=== PATIENT | female | born 1990 | race Caucasian/White ===

== ENCOUNTER 2023-03-11 09:49 | Outpatient (CLI) | payer BC, SELFPAY ==
--- NOTE | ~2023-03-11 | US_ITS ---
EXAMINATION: 1. US OB limited w BPP 2. US OB follow up DATE: 03/11/2023 12:29 INDICATION: Hypertension. Third trimester. TECHNIQUE: Real-time ultrasound of the pelvis was performed. COMPARISON: None. FINDINGS: There is a single living fetus in vertex presentation. The placenta is anterior. heart rate is 129 beats per minute (bpm). The amniotic fluid index is 13.6 cm, which is normal. The following biometric data were obtained: Biparietal diameter (BPD): 9.2 cm; head circumference (HC): 32.7 cm; abdominal circumference (AC): 33 .2 cm; femur length (FL): 7.3 cm. These measurements are concordant. Estimated weight is 3156 g +/- 473 g, which correlates with the 69th percentile when 04/03/23 is used as estimated date of delivery. As single measurements, these parameters are each equal to the following estimated gestational ages: BPD: 37 weeks 3 days. HC: 37 weeks 0 days. AC: 37 weeks 1 days. FL: 37 weeks 3 days. estimated gestational age based solely on measurements from this exam is 37 weeks 2 days +/- 2 weeks 4 days. Biophysical profile performed by the technologist: breathing (30 sec sustained breathing in 30 minutes): 0 out of 2 movement (3 gross body movements in 30 minutes): 2 out of 2 tone (one episode of ntvejdq-vrdbalrgr-mjiqmen limb movement): 2 out of 2 Amniotic fluid pocket (2 cm): 2 out of 2 Total score: 6 out of 8 IMPRESSION: 1. Single living fetus in vertex presentation. 2. Estimated weight is 3156 g +/- 473 g, which correlates with the 69th percentile when 04/03/23 is used as estimated date of delivery. 3. Biophysical profile 6 out of 8. Reviewed, dictated and finalized at location A. IMPRESSION: 1. Single living fetus in vertex presentation. 2. Estimated weight is 3156 g +/- 473 g, which correlates with the 69th percentile when 5/6/23 is used as estimated date of delivery. 3. Biophysical profile 6 out of 8.
[2023-03-11 10:21] VITALS: BP 152/93; PULSE 99
[2023-03-11 10:30] VITALS: BP 135/97; PULSE 92
[2023-03-11 10:41] LABS: Basophils Percent Auto 0.2 % (0.2-1.2); Eosinophils Absolute Auto 0.1 K/mm3 (0-0.3); Eosinophils Percent Auto 0.5 % (0-4.4); Hematocrit 39.1 % (37.0-47.0); Hemoglobin 13.4 g/dL (12.0-15.0); Immature Granulocyte Absolute 0.05 K/mm3 (0.00-0.031); Immature Granulocyte Percent A 0.5 % (0-0.5); Lymphocytes Absolute Auto 2.11 K/mm3 (0.9-3.2); Lymphocytes Percent Auto 21.6 % (18.3-44.2); Mean Corpuscular HGB Conc 34.3 g/dl (32-36); Mean Corpuscular Hemoglobin 29.3 pg (26-34); Mean Corpuscular Volume 85.4 fl (80-100); Mean Platelet Volume 11.2 fl (7.4-10.4); Monocytes Absolute Auto 0.6 K/mm3 (0.1-0.6); Monocytes Percent Auto 5.7 % (2.6-8.5); Neutrophils Percent Auto 71.5 % (45.5-73.1); Platelet Count Result 226 k/mm3 (150-375); Red Blood Count 4.58 M/mm3 (4.2-5.4); Red Cell Distribution Width 13.1 % (11.5-14.5); White Blood Count 9.8 K/mm3 (4.5-10.0)
[2023-03-11 10:45] VITALS: BP 147/97; PULSE 82
[2023-03-11 10:54] LABS: Alanine Aminotransferase 25 U/L (6-35); Albumin Level 3.9 g/dL (3.5-5.1); Alkaline Phosphatase 128 U/L (38-126); Anion Gap 5 mmol/L (8-16); Aspartate Amino Transferase 33 U/L (14-36); Bilirubin,Total 0.6 mg/dL (0.2-1.3); Blood Urea Nitrogen 9 mg/dL (7-17); Calcium 8.9 mg/dL (8.4-10.2); Carbon Dioxide 23 mmol/L (22-30); Chloride 105 mmol/L (98-107); Estimated Glomerular Filt Rate > 60; Glucose 86 mg/dL (65-110); Potassium 3.9 mmol/L (3.4-5.0); Sodium 133 mmol/L (137-145)
[2023-03-11 11:00] VITALS: BP 147/102; PULSE 87
[2023-03-11 11:13] LABS: Creatinine Urine 285.1 mg/dL; Total Protein Urine Random 16 mg/dL; Ur Ttl Prot Creatinine Ratio 0.06 mg/mg (0-0.20)
[2023-03-11 11:15] VITALS: BP 143/98; PULSE 94
[2023-03-11 11:19] VITALS: BP 135/97; PULSE 93
[2023-03-11 11:25] LABS: Appearance Urine Cloudy (Clear); Bacteria Urine 1+ /hpf; Bilirubin Urine 1+ (Negative); Blood Urine Negative (Negative); Color Urine Dark Yellow (Yellow); Glucose Urine UA Negative (Negative); Ketones Urine Trace mg/dL (Negative); Leukocyte Esterase Ur 1+ LEU/UL (NEGATIVE); Need Manual Microscopic Reviewed; Nitrate Urine Negative (Negative); Protein Urine 2+ mg/dL (Negative); RBC Urine 0-2 /hpf (0-2); Specific Grav Ur 1.028 (1.001-1.035); Squamous Epithelial Cell Urine Few /hpf (Few); pH Urine 6.5 (5.0-9.0)
[2023-03-11 11:27] LABS: Add Urine Microscopic? YES
--- NOTE | 2023-03-11 11:34 | PC.NURSE ---
Dr. Haynes updated with vital signs, labs and tracing reviewed. Order received for pt to have ultrasound with VON, BPP and est weight.
--- NOTE | 2023-03-11 12:51 | PC.NURSE ---
Dr. Haynes updated with pt ultrasound report. Order received for pt to discharge with a 24 hour urine and call the office for appt on Wednesday.
[2023-03-11 13:16] VITALS: BMI 35.9
== END 2023-03-11 13:09 | disposition home or self-care (01) ==
LOC: ANHOBOP 09:53 → ANHOBPP 09:53
PROVIDERS: PCP Family Medicine; Visit Provider Obstetrics & Gynecology
DX: O99.891 Other specified diseases and conditions complicating pregnancy (principal); R03.0 Elevated blood-pressure reading, without diagnosis of hypertension; Z3A.37 37 weeks gestation of pregnancy
CPT/HCPCS: 36415; 59025; 76815; 76816; 76819; 80053; 81001; 82570; 84156; 84550; 85025; 87086; 87088; 99199

== ENCOUNTER 2023-03-12 13:23 | Outpatient (NON) | payer BC, SELFPAY ==
[2023-03-12 13:23] VITALS: BMI 36.0
[2023-03-12 15:51] LABS: Collection Time Urine 24 HOURS
[2023-03-12 16:02] LABS: Patient Weight 230 Lbs; Total Volume 24 Hour Urine 1400 ml
[2023-03-12 16:03] LABS: Total Volume 24 Hour Urine 1400 ml
[2023-03-12 16:07] LABS: Total Protein Urine 24 Hr 154 mg/24hr (28-141); Total Protein Urine Random 11 mg/dL
[2023-03-12 16:08] LABS: Creatinine Clearance Urine 205.4 ml/min (75-125); Creatinine Urine 130.6 mg/dL
== END 2023-03-12 13:24 | disposition home or self-care (01) ==
LOC: ANHOBOP 13:49
PROVIDERS: PCP Family Medicine; Visit Provider Obstetrics & Gynecology
DX: O99.891 Other specified diseases and conditions complicating pregnancy (principal); R03.0 Elevated blood-pressure reading, without diagnosis of hypertension
CPT/HCPCS: 81050; 82575; 84156

== ENCOUNTER 2023-03-16 05:01 | Inpatient (IN) | payer BC, SELFPAY ==
[2023-03-16] VITALS (126 sets, daily range): BP systolic 93–164; BP diastolic 45–117; PULSE 73–133; RESP 16; TEMP 36.4–37.1; O2SAT 98–100; BMI 36.6
--- NOTE | 2023-03-16 05:24 | LDADM ---
This patient, Stephanie Nogueira, was admitted to Labor/Delivery/Recovery 107 on 03/16/23 at 05:01. Plans for labor, pain management and were discussed with patient. Patient/family oriented to hospital policies and general routines including ID bracelet, bed and alarms, visiting hours, pain management, procedures, bathroom and other care routines, personal items, smoking policy, room service/diet and guest tray routines, security routines, and visiting hours. Patient/Family are encouraged to report perceived risks to care and to ask questions if they do not understand what they are told or what they should do. See OBIX for further documentation.
[2023-03-16 06:01] LABS: Basophils Percent Auto 0.3 % (0.2-1.2); Eosinophils Absolute Auto 0.1 K/mm3 (0-0.3); Eosinophils Percent Auto 0.6 % (0-4.4); Hematocrit 37.2 % (37.0-47.0); Immature Granulocyte Absolute 0.06 K/mm3 (0.00-0.031); Immature Granulocyte Percent A 0.5 % (0-0.5); Lymphocytes Absolute Auto 2.72 K/mm3 (0.9-3.2); Lymphocytes Percent Auto 21.8 % (18.3-44.2); Mean Corpuscular HGB Conc 34.9 g/dl (32-36); Mean Corpuscular Hemoglobin 28.8 pg (26-34); Mean Corpuscular Volume 82.5 fl (80-100); Mean Platelet Volume 11.3 fl (7.4-10.4); Monocytes Absolute Auto 0.7 K/mm3 (0.1-0.6); Monocytes Percent Auto 5.4 % (2.6-8.5); Neutrophils Absolute Auto 8.9 K/mm3 (1.3-6.7); Neutrophils Percent Auto 71.4 % (45.5-73.1); Platelet Count Result 224 k/mm3 (150-375); Red Blood Count 4.51 M/mm3 (4.2-5.4); Red Cell Distribution Width 12.9 % (11.5-14.5); White Blood Count 12.5 K/mm3 (4.5-10.0)
[2023-03-16 06:30] LABS: Alanine Aminotransferase 29 U/L (6-35); Albumin Level 3.9 g/dL (3.5-5.1); Alkaline Phosphatase 140 U/L (38-126); Anion Gap 8 mmol/L (8-16); Aspartate Amino Transferase 36 U/L (14-36); Bilirubin,Total 0.5 mg/dL (0.2-1.3); Blood Urea Nitrogen 8 mg/dL (7-17); Carbon Dioxide 19 mmol/L (22-30); Chloride 108 mmol/L (98-107); Estimated CRCL calculation 170 ml/min; Estimated Glomerular Filt Rate > 60; Glucose 100 mg/dL (65-110); Potassium 3.6 mmol/L (3.4-5.0); Sodium 135 mmol/L (137-145); Uric Acid 5.8 mg/dL (2.5-7.5)
[2023-03-16 06:47] LABS: Rapid Plasma Reagin Non-Reactive (NonReactive)
[2023-03-16 06:48] LABS: HIV 1/2 Ab P24 Ag Result Negative (Negative)
[2023-03-16] MEDS: AMPICILLIN 2 GM/NS 100 ML 2 GM/100 ML BAG IVPB (06:57)
[2023-03-16] MEDS: OXYTOCIN 30 UNITS/NS 500 ML 30 UNITS/500 ML BAG IV CONT (06:57)
[2023-03-16] MEDS: LACTATED RINGERS 1,000 ML 125 ML IV CONT (06:57)
--- NOTE | 2023-03-16 08:41 | WPDOBADMIT ---
Obstetrics - Admit Note Admission Note: record reviewed. Additions to the history and/or subsequent changes in the physical findings follow. 32 y/o at 37 3/7 with gestational hypertension here for induction of labor. GBS unknown, results not back yet. Had taken 81 mg aspirin through . otherwise unremarkable. AVSS bp currently 120/70 NST reactive TOCO: irregular contractions ABD soft, nontender, gravid, vertex EXT nontender Cervix 3/50/-2. AROM with clear fluid. Vertex. IUPC placed. A: IUP at term with gestational HTN. P: Offered induction of labor. Oxytocin. Reviewed risks of prematurity vs. risks of hypertensive disease. Pediatrics prefers GBS prophylaxis in this situation, so ampicillin has been started. Anticipate .
[2023-03-16] MEDS: AMPICILLIN 1 GM/NS 50 ML 1 GM/50 ML BAG IVPB (11:49)
[2023-03-16] MEDS: CALCIUM CARBONATE (TUMS) 500 MG (200 MG ELEMENTAL) PO (11:49)
[2023-03-16] MEDS: ACETAMINOPHEN 500 MG TABLET 1000 MG PO (12:06)
--- NOTE | 2023-03-16 13:52 | P.PCNOB_ITS ---
OB - Delivery Note Procedure Delivery date: 03/16/23 Procedure: Induction of labor with Events: Gestational Hypertension Induction method: Per Pitocin Protocol Delivery augmentation: Rupture of Membranes Delivery monitor: External FHT, External Uterine and Internal Uterine Route of delivery: Laceration Description: Periurethral Delivery repair: vicryl (3-0) Specimen: Yes (Cord blood, placenta) Quantitative Blood Loss (ml): 180 Anesthesia type: Epidural Disposition: PACU Complications: None Narrative: 32 y/o at 37 3/7 weeks gestation who presented to the hospital for induction of labor for gestational hypertension and worsening bp control. Oxytocin was administered intravenously. Amniotomy was performed with return of clear fluid. She received an epidural for pain control. Her labor progressed and her cervix dilated completely. She pushed with good effort and delivered the infant's head to the perineum, followed by the body. The nose and mouth were bulb suctioned. After a delay, the cord was clamped and cut. The was handed off the field. Cord blood was collected. The placenta delivered spontaneously and was grossly normal in appearance. The usual 3 vessel cord was noted. A left-sided periurethral laceration was sustained. This was reapproximated using 3 0 Vicryl in interrupted figure of eight fashion. Excellent hemostasis resulted as did excellent reapproximation of the normal anatomy. Needle and instrument counts were correct. The patient was taken to r ecovery room in stable condition. The infant went to the nursery in stable condition. I was present and scrubbed for the entire delivery. [place] Baby Date of : 03/16/23 Time of : 13:33 Weeks of gestation at delivery: 37 Infant gender: Male Weight (pounds): 6 Weight (ounces): 8 score one minute: 9 score five minutes: 9
--- NOTE | 2023-03-16 13:54 | PM.OBDSVD ---
DS: Admitting Diagnosis Discharge Date 03/18/23 Admitting Diagnosis IUP at 37 3/7 weeks Gestational HTN DS: Discharge Diagnosis Discharge Diagnosis (1) Gestational hypertension affecting second : Code(s): O13.9 - Gestational [-induced] hypertension without significant proteinuria, unspecified trimester Status: Acute (2) (normal spontaneous vaginal delivery): Code(s): O80 - Encounter for full-term uncomplicated delivery Status: Acute OB - DS: Summary OB Procedures : PIH Mgmt OB Procedures Intrapartum: Spontaneous Vag Delivery OB Procedures: : None Time Spent with Patient Time attestation: Total time spent providing and/or coordinating discharge services: DS: Data Data Completed and Pending Labs on day of discharge: Labs from last 24 hours 03/16/23 03/16/23 03/16/23 05:16 05:16 05:16 WBC RBC Hgb Hct MCV MCH MCHC RDW Plt Count MPV Immature Gran % (Auto) Neut % (Auto) Lymph % (Auto) Bond % (Auto) Eos % (Auto) Baso % (Auto) Lymph # (Auto) Bond # (Auto) Eos # (Auto) Baso # (Auto) Abs Immat Gran (auto) Absolute Neuts (auto) Absolute Nucleated RBC Nucleated RBC % Sodium Potassium Chloride Carbon Dioxide Anion Gap BUN Creatinine Estim Creat Clear Calc Estimated GFR Glucose Uric Acid Calcium Total Bilirubin AST ALT Alkaline Phosphatase Total Protein Albumin RPR Non-reactive HIV 1&2 Ab/P24 Ag 4thGn Negative Blood Type A Positive Antibody Screen Negative 03/16/23 03/16/23 05:16 05:15 WBC 12.5 H RBC 4.51 Hgb 13.0 Hct 37.2 MCV 82.5 MCH 28.8 MCHC 34.9 RDW 12.9 Plt Count 224 MPV 11.3 H Immature Gran % (Auto) 0.5 Neut % (Auto) 71.4 Lymph % (Auto) 21.8 Bond % (Auto) 5.4 Eos % (Auto) 0.6 Baso % (Auto) 0.3 Lymph # (Auto) 2.72 Bond # (Auto) 0.7 H Eos # (Auto) 0.1 Baso # (Auto) 0.0 Abs Immat Gran (auto) 0.06 H Absolute Neuts (auto) 8.9 H Absolute Nucleated RBC 0.0 Nucleated RBC % 0.0 Sodium 135 L Potassium 3.6 Chloride 108 H Carbon Dioxide 19 L Anion Gap 8 BUN 8 Creatinine 0.50 L Estim Creat Clear Calc 170 Estimated GFR > 60 Glucose 100 Uric Acid 5.8 Calcium 9.0 Total Bilirubin 0.5 AST 36 ALT 29 Alkaline Phosphatase 140 H Total Protein 7.0 Albumin 3.9 RPR HIV 1&2 Ab/P24 Ag 4thGn Blood Type Antibody Screen Discharge Plan Discharge Attending physician on discharge: Harpreet Haynes Discharging Clinician: Harpreet Haynes Patient Disposition: Home, Self-Care Activity: pelvic rest Diet: regular Discharge Instructions: Call or return if temperature above 100.4? F, increased abdominal pain, increased vaginal bleeding or any new problems. Stand Alone Forms: General Discharge Information Follow-up/Referrals: Harpreet Haynes MD [Physician] - 6 Weeks Discharge Medications: New ibuprofen 600 mg tablet 600 mg PO Q6H PRN (Reason: cramps) Qty: 30 0RF nifedipine [Procardia XL] 30 mg tablet extended release 24hr 30 mg PO DAILY Qty: 30 0RF Continued #2 Tablet 1 tablet PO DAILY Date of admission: 03/16/23 05:01 Primary Care Provider: Allyssa,Niels Eaton Admitting Provider: Harpreet Haynes Attending physician on admission: Harpreet Haynes Condition: Stable
[2023-03-16] MEDS: OXYTOCIN 30 UNITS/NS 500 ML 30 UNITS/500 ML BAG 125 UNITS IV CONT (14:03)
[2023-03-16] MEDS: IBUPROFEN 600 MG TABLET PO (16:19)
--- NOTE | 2023-03-16 16:38 | PC.NURSE ---
Patient transferred to post room #280 via wheelchair. Support person present. Oriented to unit, room, information board, rooming in, admission packet and security measures. Patient verbalizes understanding.
[2023-03-16] MEDS: NIFEdipine 30 MG TAB.ER.24 PO (19:30)
[2023-03-16] MEDS: ACETAMINOPHEN 325 MG TABLET 650 MG PO (19:33)
[2023-03-17] VITALS (7 sets, daily range): BP systolic 105–143; BP diastolic 71–92; PULSE 64–90; RESP 16–18; TEMP 36.3–37.1; O2SAT 97–99
[2023-03-17] MEDS: IBUPROFEN 600 MG TABLET PO (05:28)
[2023-03-17 05:34] LABS: Hematocrit 32.8 % (37.0-47.0); Hemoglobin 11.2 g/dL (12.0-15.0)
--- NOTE | 2023-03-17 08:36 | PC.NURSE ---
On 03/17/23, the student, Abena Chow, provided care and completed [employer] documentation on this patient. I have reviewed the student's documentation and agree with the findings.
[2023-03-17] MEDS: DOCUSATE SODIUM 100 MG CAPSULE PO (08:39)
[2023-03-17] MEDS: MULTIVIT/MIN/PREN/FOL AC/IRON TABLET 1 TAB PO (08:39)
--- NOTE | 2023-03-17 09:59 | WPDANLDPN2 ---
Anes-Prog Note L&D Date/Time: 03/17/23 09:59 Comfortable throughout: labor and delivery Neuraxial method: epidural Epidural/Spinal procedure site: clean & non-tender Neuro status: Neuro function grossly intact. Cardiovascular status: normal Respiratory status: normal Airway patency: baseline Mental status: baseline Post-Op hydration status: normal Vital Signs: Last Vital Signs Temp 36.3 C L 03/17/23 07:54 Pulse 86 03/17/23 07:54 Resp 18 03/17/23 07:54 BP 125/92 H 03/17/23 07:54 Pulse Ox 99 03/17/23 07:54 O2 Del Method Room Air 03/16/23 19:40 Pain score (VAS): 2 I/O: Intake & Output 03/16/23 03/17/23 03/17/23 23:59 07:59 15:59 Intake Total 750 1050 Output Total 200 1500 Balance 550 -450 Patient feedback: Patient satisfied with anesthetic care.
--- NOTE | 2023-03-17 15:35 | PC.NURSE ---
[id number] Introductions were made, then consulted with patient to assess needs related to . Mother led the conversation with her?plans to feed?her infant and the?experience so far. Resources provided for inpatient and outpatient services with the feeding sheet, mom/baby guide and name written on the white board. Mother voiced understanding of information and requests assistance. Mother works well with her with encouragement and education. Encouraged understanding of the benefits of skin to skin (demonstrating unwrapping and placing upright on her chest), stimulating with massage touch, changing positions to encourage wakefulness, how to watch for early feeding cues, responsive feeding, feeding on demand (aiming for 8-12 times in 24 hours, about every 2-3 hours), milk production, building/maintaining a milk supply, duration of feeding, signs of adequate intake/output and how to record on the feeding sheet. Reviewed positioning and ear, shoulder, hip alignment, supporting the breast to facilitate a deep latch, asymmetrical latch (off-center), leading with the chin with a big, open, wide gape and body close to mother. latched optimally to the left breast in football position. Education given to mother of how to visualize suck/swallow ratios and listen for drinking at the breast. Infant was able to maintain latch without discomfort to mother. Nipple care reviewed with optimal latch and good positioning. Reviewed good handwashing when or touching the breast/nipples to prevent infection. Once self detached there was slight flattening to the underside of the nipple. Mother was encouraged to practice the above education and how to encourage a early term infant to wake and feed effectively. Resources used to facilitate learning were used with the visual handouts, tool, mom and baby guide. Mother voiced understanding of skin to skin, stimulating with massage touch, responsive feedings, hand expressed colostrum, talking to to encourage if it has been 2 -2.5 hours since the start of the last , to call if does not latch, or if there is discomfort with . Resources provided for inpatient/outpatient with feeding sheet and the mom/baby guide. Mother voiced understanding of information, demonstrated learning and will call if there is a request for assistance. Reported to the primary RN.
--- NOTE | 2023-03-17 16:02 | PM.OBPNVD ---
OB - PN: Subj Subjective Date/time seen: 03/17/23 16:02 Narrative: Pain OK. Would like circumcision for son. OB - PN: Obj Data Labs 03/17/23 05:08 03/16/23 05:15 Labs: Laboratory Results - last 24 hr 03/17/23 05:08 Hgb 11.2 L Hct 32.8 L OB - PN A/P Plan Comments: A: PPD#1, doing well. P: Routine care. Reviewed circ. Exam Psych: Other: AVSS ABD soft, nontender, fundus firm EXT nontender
[2023-03-18 07:50] VITALS: BP 142/87; PULSE 74; RESP 18; TEMP 36.8; O2SAT 100
--- NOTE | 2023-03-18 09:06 | PM.OBPNVD ---
OB - PN: Subj Subjective Date/time seen: 03/18/23 09:06 Narrative: Pain OK. Would like to go home. OB - PN: Obj Data Labs 03/17/23 05:08 03/16/23 05:15 OB - PN A/P Plan Comments: A: PPD#2, doing well. Gestational HTN, stable. P: Home to f/u 6 weeks. Exam Psych: Other: AVSS ABD soft, nontender, fundus firm EXT nontender
[2023-03-18] MEDS: NIFEdipine 30 MG TAB.ER.24 PO (11:01)
[2023-03-18] MEDS: DOCUSATE SODIUM 100 MG CAPSULE PO (11:01)
[2023-03-18] MEDS: MULTIVIT/MIN/PREN/FOL AC/IRON TABLET 1 TAB PO (11:01)
--- NOTE | 2023-03-18 14:29 | PC.NURSE ---
[id number] Purposefully rounded to assess for needs. Mother led the conversation with her experience and plan to feed her so far and her ability to independently latch optimally without discomfort to feed . Reminded parents to use good handwashing technique to prevent infection. Mother is feeding appropriately for growth of and understands stimulating infant to eat if needed. Infant has had appropriate feedings in the last 24 hours meets the outcomes for weight, output and jaundice at this time. Mother states she is confident to continue effectively breastfeed her infant at home, when to call for assistance and denies any additional assistance or education at this time. Reinforced understanding of milk production, transition of milk, signs of adequate intake, transition of stool, prevention/relief of engorgement, prevention/response r/t mastitis, responsive watching for feeding cues, the different methods of stimulating infant to breastfeed 2-3 hours after the start of the last feeding, community resources, medication information reviewed per [facility] and when to call a provider using the resource of the mom and baby guide. Mother voiced understanding of the education shared. Reported to the primary RN.
[2023-03-19 08:46] VITALS: BP 142/93; RESP 20; TEMP 36.6; O2SAT 99
== END 2023-03-18 12:04 | disposition home or self-care (01) | DRG 807 ==
LOC: ANHLDR 13:56 → ANHOB2 16:41
PROVIDERS: Admitting Provider Obstetrics & Gynecology; PCP Family Medicine; Visit Provider Obstetrics & Gynecology
DX: O13.4 Gestational [pregnancy-induced] hypertension without significant proteinuria, complicating childbirth (principal); Z37.0 Single live birth; O71.82 Other specified trauma to perineum and vulva; Z3A.37 37 weeks gestation of pregnancy
CPT/HCPCS: 36415; 80053; 84550; 85014; 85018; 85025; 86592; 86703; 86850; 86900; 86901; 88307; A9270; G0432; J0290; J2590; J2795; J7120

== ENCOUNTER 2023-04-03 04:44 | Emergency (ER) | payer BC, SELFPAY ==
[2023-04-03] VITALS (7 sets, daily range): BP systolic 129–147; BP diastolic 70–85; PULSE 77–94; RESP 12–18; TEMP 36.3; O2SAT 98–99
--- NOTE | ~2023-04-03 | CT_ITS ---
EXAMINATION: CT abdomen pelvis w con DATE: 04/03/2023 07:27 INDICATION: Abdominal pain. TECHNIQUE: Computed tomography (CT) of the abdomen and pelvis was performed with 100 mL Omnipaque 350 intravenous contrast. Automated exposure control and iterative reconstruction technique were employe d. The dose-length product was 995.58 mGy-cm. COMPARISON: None. FINDINGS: The visualized portions of the lung bases are clear without pneumonia or pleural effusion. The heart size is normal. No pericardial effusion. There is a small sliding hiatal hernia. There is p eriportal edema in the liver. The gallbladder is normal in size. Gallbladder wall thickening is noted . The spleen, pancreas, adrenal glands, and kidneys are normal. There are no dilated loops of bowel. The appendix is normal. There are no pathologically enlarged lymph nodes. There is no free intraperit silverman fluid. There is mild thoracic and lumbar spondylosis. IMPRESSION: 1. Gallbladder wall thickening, which may be seen with acute or chronic cholecystitis, interstitial e marilou, or chronic liver disease. Reviewed, dictated and finalized at location A. IMPRESSION: 1. Gallbladder wall thickening, which may be seen with acute or chronic cholecy stitis, interstitial edema, or chronic liver disease.
--- NOTE | 2023-04-03 05:19 | ED.GENADULT ---
HPI - General Adult General Chief complaint: Abdominal Pain <Saran Navarro MD - Last Filed: 04/03/23 06:48> Stated complaint: abdominal pain w/ vomiting <Saran Navarro MD - Last Filed: 04/03/23 06:48> Time Seen by Provider: 04/03/23 04:58 <Saran Navarro MD - Last Filed: 04/03/23 06:48> History of Present Illness HPI narrative: Patient is a 33-year-old female who presents the emergency department with chief complaint of epigastric pain. Patient reports that she went out last night and had fried shrimp and crab patient also reports that approximately 1 month and reports started having severe epigastric discomfort that radiated up into her epigastric region. Patient reports the pain is sharp reports to multiple different things and finally is resolved upon arrival to the emergency department. <Saran Navarro MD - Last Filed: 04/03/23 06:48> Related Data Home medications: Home Medications Medication Instructions Recorded Confirmed attila.dionne moreno,urg-jouw-jtevt 1 tablet PO DAILY 03/04/23 03/16/23 <Saran Navarro MD - Last Filed: 04/03/23 06:48> Allergies/adverse reactions: Allergies Allergy/AdvReac Type Severity Reaction Status Date / Time No Known Allergies Allergy Verified 04/03/23 04:45 <Saran Navarro MD - Last Filed: 04/03/23 06:48> PMFSH Social History Social History: Social History Smoking status: Never smoker Substance use: never Lack of Transportation: No Lack of Food: Never True Current Housing: I Have Housing Concerned About Future Housing: No Difficulty Paying Gas/Electric Bills: No Difficulty Paying for Meds: No Currently Unemployed: No Education: Bachelor's Degree Difficulty w/ Childcare or Family Care: No Spiritual care concerns: No <Saran Navarro MD - Last Filed: 04/03/23 06:48> Course Course Emergency Course: Patient resting comfortably. Repeat exam patient is pain-free and without tenderness. Discussed case with general surgery who will have patient followed up in the office. No recommendation for antibiotics. Patient be given some antiemetics for home. She declines narcotic pain medication. Discussed return precautions. Also discussed low-fat diet. <Luca Mack MD - Last Filed: 04/03/23 09:08> Vital Signs Vital signs: Vital Signs Temperature 97.4 F L 04/03/23 04:49 Pulse Rate 80 04/03/23 04:49 Respiratory Rate 18 04/03/23 04:49 Blood Pressure 129/71 04/03/23 04:49 Pulse Oximetry 99 04/03/23 04:49 Oxygen Delivery Room Air 04/03/23 04:49 Temperature 97.4 F L 04/03/23 04:49 Pulse Rate 84 04/03/23 06:35 Respiratory Rate 17 04/03/23 06:35 Blood Pressure 136/76 04/03/23 06:35 Pulse Oximetry 99 04/03/23 06:35 Oxygen Delivery Room Air 04/03/23 04:49 <Saran Navarro MD - Last Filed: 04/03/23 06:48> Vital Signs Temperature 97.4 F L 04/03/23 04:49 Pulse Rate 80 04/03/23 04:49 Respiratory Rate 18 04/03/23 04:49 Blood Pressure 129/71 04/03/23 04:49 Pulse Oximetry 99 04/03/23 04:49 Oxygen Delivery Room Air 04/03/23 04:49 Temperature 97.4 F L 04/03/23 04:49 Pulse Rate 84 04/03/23 06:35 Respiratory Rate 17 04/03/23 06:35 Blood Pressure 136/76 04/03/23 06:35 Pulse Oximetry 99 04/03/23 06:35 Oxygen Delivery Room Air 04/03/23 04:49 <Luca Mack MD - Last Filed: 04/03/23 09:08> Medical Decision Making MDM Narrative Medical decision making narrative: Differential diagnosis includes cholelithiasis cholecystitis, pancreatitis, gastritis, gastroesophageal reflux Laboratory studies were obtained which showed a white count of 13.5 electrolytes showed a bilirubin of 1.0 with an AST of 328 and ALT of 116 and alk phos of 144. Lipase was normal at 136. The patient had normal liver enzymes in February A CT scan of the
[2023-04-03] MEDS: SODIUM CHLORIDE 0.9% IV 1,000 ML 999 ML IV CONT (05:20)
[2023-04-03 05:22] LABS: Basophils Absolute Auto 0.1 K/mm3 (0.0-0.1); Basophils Percent Auto 0.4 % (0.2-1.2); Eosinophils Percent Auto 0.2 % (0-4.4); Hematocrit 38.5 % (37.0-47.0); Hemoglobin 13.5 g/dL (12.0-15.0); Immature Granulocyte Absolute 0.05 K/mm3 (0.00-0.031); Immature Granulocyte Percent A 0.4 % (0-0.5); Lymphocytes Percent Auto 11.1 % (18.3-44.2); Mean Corpuscular HGB Conc 35.1 g/dl (32-36); Mean Corpuscular Hemoglobin 29.5 pg (26-34); Mean Corpuscular Volume 84.2 fl (80-100); Mean Platelet Volume 9.9 fl (7.4-10.4); Monocytes Absolute Auto 0.7 K/mm3 (0.1-0.6); Monocytes Percent Auto 4.9 % (2.6-8.5); Neutrophils Absolute Auto 11.2 K/mm3 (1.3-6.7); Platelet Count Result 290 k/mm3 (150-375); Red Blood Count 4.57 M/mm3 (4.2-5.4); Red Cell Distribution Width 12.8 % (11.5-14.5); White Blood Count 13.5 K/mm3 (4.5-10.0)
[2023-04-03] MEDS: ONDANSETRON INJ 4 MG/2 ML VIAL IV PUSH (05:22)
[2023-04-03 05:38] LABS: Albumin Level 4.8 g/dL (3.5-5.1); Alkaline Phosphatase 144 U/L (38-126); Anion Gap 14 mmol/L (8-16); Aspartate Amino Transferase 328 U/L (14-36); Blood Urea Nitrogen 14 mg/dL (7-17); Calcium 9.9 mg/dL (8.4-10.2); Carbon Dioxide 24 mmol/L (22-30); Chloride 104 mmol/L (98-107); Estimated CRCL calculation 137 ml/min; Estimated Glomerular Filt Rate > 60; Glucose 135 mg/dL (65-110); Lipase 136 U/L (23-300); Potassium 3.4 mmol/L (3.4-5.0); Sodium 142 mmol/L (137-145)
[2023-04-03 05:52] LABS: Alanine Aminotransferase 160 U/L (6-35)
[2023-04-03 07:25] LABS: Appearance Urine Clear (Clear); Bacteria Urine None Seen /hpf; Bilirubin Urine Negative (Negative); Blood Urine Negative (Negative); Color Urine Yellow (Yellow); Glucose Urine UA Negative (Negative); Ketones Urine Negative (Negative); Leukocyte Esterase Ur 1+ LEU/UL (Negative); Nitrate Urine Negative (Negative); Non Pathogenic Casts 0-2; Protein Urine Negative (Negative); RBC Urine 0-2 /hpf (0-2); Specific Grav Ur 1.023 (1.001-1.035); Squamous Epithelial Cell Urine None seen /hpf (Few); pH Urine 6.5 (5.0-9.0)
[2023-04-03 07:28] LABS: Add Urine Microscopic? YES
== END 2023-04-03 09:19 | disposition home or self-care (01) ==
PROVIDERS: Emergency Medicine; Emergency Provider Emergency Medicine; PCP Family Medicine
DX: K80.50 Calculus of bile duct without cholangitis or cholecystitis without obstruction (principal)
CPT/HCPCS: 36415; 74177; 80053; 81001; 81025; 83690; 85025; 87086; 87088; 87147; 96361; 96374; 99284; J2405; J7030; Q9967

== ENCOUNTER 2023-06-02 12:52 | Outpatient (CLI) | payer BC, SELFPAY ==
--- NOTE | 2023-06-02 13:03 | ECG_ITS ---
Measurements Intervals Excel Rate: 89 P: 44 SC: 133 QRS: 79 QRSD: 100 T: 55 QT: 350 QTc: 426 Interpretive Statements SINUS RHYTHM DELAYED PRECORDIAL R/S TRANSITION BORDERLINE ECG NO PREVIOUS ECG AVAILABLE FOR COMPARISON Electronically Signed On 06-02-2023 13:28:25 CDT by Justin Blount D.O.
[2023-06-02 13:37] LABS: Alanine Aminotransferase 47 U/L (6-35); Albumin Level 4.9 g/dL (3.5-5.1); Alkaline Phosphatase 74 U/L (38-126); Amylase 64 U/L (30-110); Aspartate Amino Transferase 32 U/L (14-36); Bilirubin,Total 0.6 mg/dL (0.2-1.3); Lipase 107 U/L (23-300)
== END 2023-06-02 12:53 | disposition home or self-care (01) ==
PROVIDERS: PCP Family Medicine; Visit Provider Surgery
DX: Z01.812 Encounter for preprocedural laboratory examination (principal); Z01.810 Encounter for preprocedural cardiovascular examination; K81.9 Cholecystitis, unspecified
CPT/HCPCS: 36415; 80076; 82150; 83690; 86850; 86900; 86901; 93005

== ENCOUNTER 2023-06-03 03:06 | Day surgery (SDC) | payer BC, SELFPAY ==
[2023-05-31 15:50] VITALS: BMI 32.1
--- NOTE | 2023-05-31 15:57 | PC.NURSE ---
Report to the Outpatient Waiting Room, entrance under the green pavilion located off [facility], at time 8:30 on date 06/03/23. Planned Procedure Time: 10:30. Time changes happen often and if your time is changed the preop area will call you the afternoon before. - You and your visitor will be asked to self-screen and do not enter if you have any COVID symptoms. - A mask is optional within the hospital at this time. Patients may have clear liquids (water, carbonated beverages, clear teas, apple juice) until 3 hours prior to surgery (7:30) with a maximum of 20 ounces. - No food from midnight until time of surgery Take the following medications with a SIP of water the morning of surgery: PROCARDIA DO NOT STOP ANY OF YOUR OTHER PRESCRIPTION MEDICATIONS PRIOR TO SURGERY ?EXCEPT THE FOLLOWING Medications to discontinue per physician: VITAMINS/SUPPLEMENTS Date to take last dose: NO MORE UNTIL AFTER SURGERY Please no make-up, nail ukrainian, hairspray, perfume, deodorant, or body powder the day of surgery. No jewelry (including any body piercings) or valuables the day of surgery, leave them at home. Please take a shower or bath the night before, or the morning of, surgery with an antibacterial soap. Wear comfortable, loose fitting clothing. - Jewelry must be removed prior to entering the operating room. Rings and piercings that are not removed may be cut off. - The hospital will not accept responsibility for valuables. - Please leave all valuables, including medications, at home the day of surgery. If you are going home after surgery, a licensed cdl a driver must drive you home. - NO public transportation without another adult if you receive anesthesia. - We recommend that an adult stay with you for 24 hours following discharge. - We also recommend that you do not drive, make important decision, drink alcoholic beverages, or take any drugs that were not prescribed by your health care provider for at least 24 hours after your discharge time. Follow any additional instructions given to you from your surgeon. If you or anyone in your household have experienced Covid symptoms in the past week, please notify your surgeon or the nurse liaison at the phone number below for possible testing. Telephone instructions given to PT - HORACIO ROBERT and asked if any additional questions and then verbalized understanding. Patient advised to call surgeon office or pre surgery nurse liaison [phone] if any additional questions.
--- NOTE | 2023-06-02 13:48 | P.PNAN_ITS ---
Anes - Initial Pre Proc Eval Procedure: Operation Date: 06/03/23 10:30 Proposed Procedures p Laparoscopic Cholecystectomy - Alejandra Winkler MD Date/Time: 06/02/23 13:48 Surgeon: Alejandra Winkler MD Pre Op Diagnosis: chronic cholecystitis Patient Data Age: 33 Gender: F Height: 1.7 m Weight: 93 kg Allergies Allergy/AdvReac Type Severity Reaction Status Date / Time No Known Allergies Allergy Verified 05/31/23 15:48 Home Medications Medication Instructions Recorded Confirmed Type prenat.vits,dionne,eew-xxdp-gpbne 1 tablet PO DAILY 03/04/23 06/03/23 History nifedipine 30 mg tablet,extended 30 mg PO DAILY #30 tabs 03/18/23 06/03/23 Rx release 24 hr (Procardia XL) Lactobacillus 1 cap PO DAILY 05/31/23 06/03/23 History acidophilus-Bifidobac.animalis 2.5 billion cell capsule (Daily Probiotic) Patient hx anesthesia problems: none Family hx anesthesia problems: none Results Review: All pre-operative results and documents have been reviewed as part of the pre- operative evaluation. [facility] Past Medical History Medical History (Updated 06/03/23 @ 09:35 by Neeraj Berry DO) Hypertension PIH, yet to followed up with primary Surgical History Surgical History H/O knee surgery RINKU ACL repair Family History Family History Other Diabetes mellitus Heart disease Hypertension Social History Social History Smoking status: Never smoker Alcohol intake: never Substance use: never Substance use type: does not use Lack of Transportation: No Lack of Food: Never True Current Housing: I Have Housing Concerned About Future Housing: No Difficulty Paying Gas/Electric Bills: No Difficulty Paying for Meds: No Currently Unemployed: No Education: Bachelor's Degree Difficulty w/ Childcare or Family Care: No Living arrangements: with family Occupation/Education: occupation Additional occupation/education comments: Self Employed Spiritual care concerns: No Anes - Eval Final PreProcedure Day of Procedure 06/02/23 13:48 Patient weight: obese Heart: regular rate and rhythm Lungs: clear to auscultation Airway: Mallampati scale class II Neurological: alert and oriented Last oral intake: >/= 8 hours ASA classification: II Emergent: no Anesthetic plan: proceed Anesthesia type and monitoring: general ETT and standard monitoring Results Review: All pre-operative results and documents have been reviewed as part of the pre- operative evaluation. Informed Consent: The patient's anesthetic plan and its attendant risks and benefits were discussed with the patient/family/POA. Questions were solicited and answers provided to the satisfaction of the patient/family/POA.
[2023-06-03] VITALS (10 sets, daily range): BP systolic 121–140; BP diastolic 52–90; PULSE 58–85; RESP 12–19; TEMP 36.4; O2SAT 95–100
--- NOTE | 2023-06-03 07:21 | WPDHPUPDATE1 ---
History and Physical Update Update Date/Time: 06/03/23 07:21 History and Physical has been reviewed, including an updated exam of the patient. There are NO changes in the patient's condition. Risks, benefits, and alternatives have been discussed and questions answered. Patient agrees to proceed with procedure.
[2023-06-03] MEDS: LACTATED RINGERS 1,000 ML 30 ML IV CONT ×2 (09:00→10:46)
[2023-06-03] MEDS: ACETAMINOPHEN 500 MG TABLET 1000 MG PO (09:00)
[2023-06-03] MEDS: KETOROLAC 15 MG/ML VIAL (*BKC) IV PUSH (09:00)
[2023-06-03] MEDS: SCOPOLAMINE 1.5 MG PATCH TRANSDERM (09:36)
[2023-06-03] MEDS: ceFAZolin 2 GM/D5W 50 ML 2 GM/50 ML BAG IVPB (10:02)
[2023-06-03] MEDS: BUPIVACAINE/EPINEPHRINE 0.25% 50 ML VIAL 30 ML INFILTRATE (10:30)
--- NOTE | 2023-06-03 10:45 | W.PM.PROC2 ---
Procedure Note - Detailed Date of Procedure 06/03/23 Pre-op Diagnosis chronic cholecystitis Post-op Diagnosis Same Procedure Performed Laparoscopic cholecystectomy Surgeon Alejandra Winkler MD Anesthesia General Indications 33-year-old female presented to the office complaining of postprandial right upper quadrant abdominal pain associated with nausea and vomiting. Workup including imaging significant for chronic cholecystitis. Findings moderate cholecystitis Description of Procedure The patient was taken to the operating room placed in the supine position. After adequate induction of general anesthesia, the patient was prepped and draped in normal sterile fashion. A time-out was then performed to verify the patient's identity as well as the procedure being performed. I then made a 5 mm incision in the infraumbilical region. Through this, a Veress needle was placed into the peritoneal cavity and CO2 gas was then insufflated. After adequate pneumoperitoneum was achieved, the Veress needle was removed and a 5 mm optiview trocar was placed through this incision under direct visualization. I then placed the laparoscope through this trocar site and under direct visualization placed a further 12 mm subxiphoid port as well as 2 additional 5 mm ports in the right upper abdomen. The gallbladder was then identified and was noted to be moderately inflamed and distended. I was able to place a grasper at the dome of the gallbladder and this was retracted anterior and cephalad up over the liver. A 2nd retractor was then placed at the infundibulum and retracted laterally, this allowed visualization of the triangle of Calot. I then was able to visualize the cystic duct in its entirety from its proximal insertion into the gallbladder, to its distal junction with the common hepatic/common bile duct junction. At this point, I carefully skeletonized the proximal cystic duct with the [place] dissector. I then clipped and transected the proximal cystic duct. Next I visualized the cystic artery. Again the artery was skeletonized, clipped, and transected. I then used the Bovie cautery to take down the peritoneal attachments of the gallbladder off the liver bed. Once the gallbladder specimen was completely detached, an endo-pouch was placed through the 12 mm port site. I then placed the gallbladder specimen into the Endo pouch and removed the endo-pouch from the 12 mm port site. The specimen will now be sent to pathology for further review. I then copiously irrigated the right upper quadrant. Hemostasis was noted in the liver bed, the clips were noted to be in good position on both the cystic duct stump and the cystic artery stump. No other pathology was noted in the right upper quadrant. I then moved the laparoscope to the subxiphoid port. No iatrogenic injury or other pathology was noted in the lower abdomen. I then closed the 12 mm trocar site under direct visualization using the Ascencion cone and 0 Vicryl suture. At this point, the abdomen was desufflated and all ports removed. All port sites were then closed with 4.O Monocryl subcuticular sutures. Dermabond was placed on each incision. The patient tolerated the procedure well, was extubated in the operating room postoperative and will be transferred to the recovery room in stable condition Estimated Blood Loss 5 Drains No Packing No Pathology Yes Complications No immediate complications Condition Stable Disposition PACU [facility] Billing Surgery - Charge Forward: Surgery Billing
[2023-06-03] MEDS: fentaNYL CITRATE INJ (*CRX) 100 MCG/2 ML VIAL 25 MCG IV PUSH ×5 (11:06→11:55)
[2023-06-03] MEDS: diphenhydrAMINE HCl INJ 50 MG/ML VIAL 25 MG IV PUSH (11:29)
[2023-06-03] MEDS: oxyCODONE HCL (*CRX) 5 MG TAB IR PO (12:39)
== END 2023-06-03 13:30 | disposition home or self-care (01) ==
PROVIDERS: PCP Family Medicine; Visit Provider Surgery
PROC: 0FT44ZZ Resection of Gallbladder, Percutaneous Endoscopic Approach (ICD-10-PCS; CPT 47562; principal; 2023-06-03 10:30)
DX: K80.10 Calculus of gallbladder with chronic cholecystitis without obstruction (principal); E66.9 Obesity, unspecified; Z68.32 Body mass index [BMI] 32.0-32.9, adult
CPT/HCPCS: 47562; 88304; A9270; J0690; J1100; J1200; J1885; J2250; J2405; J2704; J3010; J7030; J7120